=== PATIENT | male | born 1995 | race Caucasian/White ===

== ENCOUNTER 2021-06-11 17:11 | Emergency (ER) | payer BC ==
[~2021-06-11] VITALS: Ht 177.8 cm; Wt 72.0 kg
[2021-06-11 17:43] VITALS: BP 120/74
[2021-06-11] MEDS ORDERED: CEPH-585 PO (19:01)
== END 2021-06-11 19:45 | disposition home or self-care (01) ==
LOC: ER 17:13
DX: S62.235A Other nondisplaced fracture of base of first metacarpal bone, left hand, initial encounter for closed fracture (principal); S50.811A Abrasion of right forearm, initial encounter; M79.644 Pain in right finger(s); Z79.2 Long term (current) use of antibiotics; V19.3XXA Pedal cyclist (driver) (passenger) injured in unspecified nontraffic accident, initial encounter; Y93.89 Activity, other specified; Y92.89 Other specified places as the place of occurrence of the external cause; Y99.8 Other external cause status
CPT/HCPCS: 29125; 29130; 73140; 99284